=== PATIENT | male | born 1990 | race Caucasian/White ===

== ENCOUNTER 2016-08-18 16:00 | Outpatient (RCR) | payer MEDICAID | END 2016-08-19 | disposition home or self-care (01) | LOC: M OUTALCOH 16:00 | PROVIDERS: ATTEND Psychiatry & Neurology Psychiatry | DX: F11.20 Opioid dependence, uncomplicated (principal); F12.20 Cannabis dependence, uncomplicated; F19.20 Other psychoactive substance dependence, uncomplicated ==

== ENCOUNTER → 2016-09-16 | Outpatient (RCR) | payer MEDICAID | LOC: M OUTALCOH 09-01 11:09 | PROVIDERS: ATTEND Psychiatry & Neurology Psychiatry | DX: F11.20 Opioid dependence, uncomplicated (principal); F12.20 Cannabis dependence, uncomplicated; F19.20 Other psychoactive substance dependence, uncomplicated ==

== ENCOUNTER → 2016-10-17 | Outpatient (RCR) | payer MEDICAID | LOC: M OUTALCOH 09-22 14:37 | PROVIDERS: ATTEND Psychiatry & Neurology Psychiatry | DX: F12.20 Cannabis dependence, uncomplicated (principal); F11.20 Opioid dependence, uncomplicated; F19.20 Other psychoactive substance dependence, uncomplicated ==

== ENCOUNTER 2016-10-20 15:00 | Outpatient (RCR) | payer MEDICAID | END 2016-11-16 | LOC: M OUTALCOH 15:00 | PROVIDERS: ATTEND Psychiatry & Neurology Psychiatry | DX: F11.20 Opioid dependence, uncomplicated (principal); F12.20 Cannabis dependence, uncomplicated; F19.20 Other psychoactive substance dependence, uncomplicated ==